=== PATIENT | female | born 1990 ===

== ENCOUNTER 2024-02-16 13:43 | Inpatient (IN) | payer BC, OTHER ==
[~2024-02-16] VITALS: Ht 160 cm; Wt 74.4 kg
[2024-02-16] MEDS ORDERED: PREN-543 PO (14:09)
[2024-02-16] MEDS ORDERED: CARBOPROST 250 MCG/ML AMP IM PRN (14:15)
[2024-02-16] MEDS ORDERED: METHYLERGONOVINE 0.2 MG/ML AMP IM PRN (14:15)
[2024-02-16 14:52] LABS: BASOPHILS # (AUTO) 0.1 K/uL (0.00-0.22); BASOPHILS % (AUTO) 0.5 % (0.0-2.0); HEMATOCRIT 40.4 % (36-48); HEMOGLOBIN 13.9 g/dL (12.0-16.0); LYMPHOCYTES # (AUTO) 0.8 K/uL (2.5-16.5); LYMPHOCYTES % (AUTO) 5.5 % (20.5-51.1); MEAN CORPUSCULAR HEMOGLOBIN 31 pg (27-31); MEAN CORPUSCULAR HGB CONC 34 g/dL (33-37); MEAN CORPUSCULAR VOLUME 90.4 fL (80-94); MONOCYTES # (AUTO) 0.7 K/uL (0.8-1.0); MONOCYTES % (AUTO) 4.5 % (1.7-9.3); NEUTROPHILS # (AUTO) 13.8 K/uL (1.8-7.7); NEUTROPHILS % (AUTO) 89.5 % (42.2-75.2); PLATELET COUNT (AUTO) 209 K/uL (140-450); RED BLOOD CELL COUNT(AUTO) 4.47 MIL/uL (4.20-5.40); RED CELL DISTRIBUTION WIDTH 12.9 % (11.6-13.7); WHITE BLOOD COUNT (AUTO) 15.4 K/uL (4.8-10.8)
[2024-02-16 14:54] LABS: APPEARANCE,URINE TURBID (CLEAR); BILIRUBIN,URINE NEGATIVE (NEGATIVE); BLOOD, URINE 2+ (NEGATIVE); LEUKOCYTE ESTERASE ,URINE 2+ (NEGATIVE); NITRITE, URINE NEGATIVE (NEGATIVE); PROTEIN,URINE NEGATIVE (NEGATIVE); UGLUCOSE NEGATIVE (NEGATIVE); UROBILINOGEN,URINE 0.2 EU/dL (0.2 - 1)
[2024-02-16 15:00] LABS: COLOR,URINE AMBER (YELLOW)
[2024-02-16 15:08] LABS: ANION GAP 16.5 (8-16); CALCIUM 9.7 mg/dL (8.5-10.1); CARBON DIOXIDE 20.3 mmol/L (21-32); CREATININE 0.7 mg/dL (0.6-1.3); POTASSIUM 3.8 mmol/L (3.5-5.1); TOTAL BILIRUBIN 0.5 mg/dL (0.0-1.0); TOTAL PROTEIN, SERUM 6.6 g/dL (6.4-8.2)
[2024-02-16] MEDS ORDERED: ROPIVACAINE 0.2%/NS PREMIX 200 ML EPI ONE (15:11)
[2024-02-16 15:14] LABS: INR 0.91 (0.8-1.2); PROTHROMBIN TIME 9.6 secs (10.8-13.4)
[2024-02-16 15:20] LABS: BACTERIA,URINE FEW /HPF (None Seen); SQUAMOUS EPITHELIAL CELL,UR 4-10 (MOD) /LPF (0-3 (FEW))
[2024-02-16] MEDS: LACTATED RINGERS 1,000 ML IV SCH (15:22)
[2024-02-16] MEDS: OXYTOCIN/0.9 % SODIUM CHLORIDE 500 ML IV SCH (18:10)
[2024-02-17] MEDS ORDERED: BENZOCAINE/MENTHOL 20%-0.5% 60 GM CAN TP PRN (01:30)
[2024-02-17] MEDS ORDERED: OXYTOCIN 10 UNITS/ML VIAL IM PRN (01:30)
[2024-02-17] MEDS ORDERED: METHYLERGONOVINE 0.2 MG/ML AMP IM PRN (01:30)
[2024-02-17] MEDS ORDERED: METHYLERGONOVINE 0.2 MG TAB PO PRN (01:30)
[2024-02-17] MEDS ORDERED: IBUPROFEN 800 MG TAB PO PRN (01:30)
[2024-02-17] MEDS ORDERED: DOCUSATE SOD/SENNA 50/8.6 MG 1 TAB PO PRN (01:35)
[2024-02-17] MEDS: IBUPROFEN 800 MG TAB PO PRN (03:47)
[2024-02-17 06:57] LABS: HEMATOCRIT 31.1 % (36-48); HEMOGLOBIN 10.7 g/dL (12.0-16.0)
== END 2024-02-18 18:15 | disposition home or self-care (01) | DRG 807 ==
LOC: MLD 13:43 → MFCC 02-17 02:26
PROVIDERS: ADMIT Obstetrics & Gynecology; ATTEND Obstetrics & Gynecology
PROC: 10E0XZZ Delivery of Products of Conception, External Approach (ICD-10-PCS; principal; 2024-02-16)
PROC: 3E0R3BZ Introduction of Anesthetic Agent into Spinal Canal, Percutaneous Approach (ICD-10-PCS; 2024-02-16)
PROC: 00HU33Z Insertion of Infusion Device into Spinal Canal, Percutaneous Approach (ICD-10-PCS; 2024-02-16)
PROC: 3E033VJ Introduction of Other Hormone into Peripheral Vein, Percutaneous Approach (ICD-10-PCS; 2024-02-16)
PROC: 0HQ9XZZ Repair Perineum Skin, External Approach (ICD-10-PCS; 2024-02-16)
DX: O48.0 Post-term pregnancy (principal); Z37.0 Single live birth; O70.0 First degree perineal laceration during delivery; Z3A.41 41 weeks gestation of pregnancy
CPT/HCPCS: 36415; 51702; 59409; 80053; 81001; 85018; 85025; 85610; 85730; 86592; 86886; 86900; 86901; 87086; J2590; J2795